=== PATIENT | male | born 1955 | race Caucasian/White ===

== ENCOUNTER 2025-07-17 06:23 | Day surgery (SDC) | payer BC, SELFPAY ==
[2025-07-17 10:08] LABS: Glucose - Point of Care 101 mg/dl (70-99)
== END 2025-07-17 12:12 | disposition home or self-care (01) ==
LOC: GI 06:23
PROVIDERS: ATTENDING PHYSICIAN Surgery; FAMILY PHYSICIAN Internal Medicine
DX: Z12.11 Encounter for screening for malignant neoplasm of colon (principal); K57.30 Diverticulosis of large intestine without perforation or abscess without bleeding
CPT/HCPCS: G0121; 82962

== ENCOUNTER → 2025-09-25 12:57 | Outpatient (REF) | payer BC, SELFPAY | LOC: RAD 12:57 | PROVIDERS: ATTENDING PHYSICIAN Internal Medicine | DX: I11.9 Hypertensive heart disease without heart failure (principal) | CPT/HCPCS: 71260; Q9967 ==